=== PATIENT | male | born 1965 | race Caucasian/White ===

== ENCOUNTER 2019-10-02 08:28 | Inpatient (IN) | payer BC ==
[2019-09-24 17:03] LABS: BASOPHILS % (AUTO) 0.4 % (0-1); EOSINOPHILS # (AUTO) 0.1 X10'3 (0-0.9); EOSINOPHILS % (AUTO) 0.7 % (0-6); LYMPHOCYTES # (AUTO) 1.7 X10'3 (1.1-4.8); LYMPHOCYTES % (AUTO) 21.2 % (21-51); MEAN CORPUSCULAR HEMOGLOBIN 31.1 PG (27.0-31.0); MEAN CORPUSCULAR HGB CONC 34.2 g/dL (33.0-36.5); MEAN PLATELET VOLUME 8.6 FL (7.4-10.4); MONOCYTES # (AUTO) 0.8 X10'3 (0-0.9); MONOCYTES % (AUTO) 10.3 % (2-12); NEUTROPHILS # (AUTO) 5.5 X10'3 (1.8-7.7); NEUTROPHILS % (AUTO) 67.4 % (42-75); PRE OP HEMATOCRIT 48.8 % (42.0-52.0); PRE OP HEMOGLOBIN 16.7 g/dL (14.0-17.9); PRE OP PLATELET COUNT 196 X10'3 (140-440); RED BLOOD COUNT 5.37 X10'6 (4.70-6.10); RED CELL DISTRIBUTION WIDTH 14.4 % (11.5-14.5)
[2019-09-24 17:14] LABS: PRE OP PROTIME 10.1 SECONDS (9.0-12.0)
[2019-09-24 17:16] LABS: ALBUMIN 4.1 G/DL (3.4-5.0); ALBUMIN/GLOBULIN RATIO 1.2 (1.1-1.5); ALKALINE PHOSPHATASE 64 IU/L (46-116); BLOOD UREA NITROGEN 17 MG/DL (7-18); CALCIUM 9.1 MG/DL (8.5-10.1); CHLORIDE 107 MMOL/L (99-107); CREATININE 1.21 MG/DL (0.60-1.10); PRE OP ALT 43 U/L (30-65); PRE OP ANION GAP 6 (8-16); PRE OP AST 23 U/L (10-37); PRE OP BILIRUB, TOTAL 0.6 MG/DL (0.0-1.0); PRE OP GLUCOSE 91 MG/DL (70-104); PRE OP POTASSIUM 3.9 MMOL/L (3.4-5.1); PRE OP SODIUM 141 MMOL/L (135-145); TOTAL CARBON DIOXIDE 28.2 MMOL/L (24-32); TOTAL PROTEIN 7.5 G/DL (6.4-8.2); eGFR 63 ML/MIN
[~2019-10-02] VITALS: Ht 180.3 cm; Wt 117.3 kg
[2019-10-02] VITALS (20 sets, daily range): BP systolic 100–143; BP diastolic 50–105
[~2019-10-02 08:28] MED LIST: HYDR-3972 PO; LOSA50TA64 PO; clindamycin-Cleocin 900mg/D5W 50 ML IV ONE; famotidine 20mg tablet PO ONE
[2019-10-02] MEDS: ringers solution, lacted 1,000 ML IV SCH ×2 (08:58→19:03)
[2019-10-02] MEDS ORDERED: MIDAZolam 5mg/5ml vial ONE (09:04)
[2019-10-02] MEDS ORDERED: fentaNYL /PF 50mcg/ml 5ml ampule ONE ×2 (09:04→12:00)
[2019-10-02] MEDS ORDERED: morphine 4 MG/ML inj SYRINge IV PRN (09:15)
[2019-10-02] MEDS ORDERED: hydrALAZINE 20mg/ml inj. IV PRN (09:15)
[2019-10-02] MEDS ORDERED: ringers solution, lacted 1,000 ML IV SCH (09:15)
[2019-10-02] MEDS ORDERED: labetalol 20mg/4ml (5mg/ml) syringe IV PRN (09:15)
[2019-10-02] MEDS ORDERED: morphine 2 MG/ML inj. syringe IV PRN (09:15)
[2019-10-02] MEDS ORDERED: fentaNYL/PF 50MCG/1 ML 2ML syringe IV PRN (09:15)
[2019-10-02] MEDS ORDERED: ondansetron/PF 4mg/2ml inj IV PRN ×2 (09:15→13:45)
[2019-10-02] MEDS ORDERED: glycopyrrolate 0.2mg/ml inj ONE (09:25)
[2019-10-02] MEDS ORDERED: sevoflurane 250ml liquid IH ONE (09:25)
[2019-10-02] MEDS ORDERED: dexamethasone sod phosphate 10mg/ml inj ONE (09:25)
[2019-10-02] MEDS ORDERED: neostigmine methylsulfate 1 MG/ML 10ml vial ONE (09:25)
[2019-10-02] MEDS ORDERED: tranexamic acid 100mg/ml inj. ONE (09:43)
[2019-10-02] MEDS ORDERED: propofol inj 20 ML IV ONE ×3 (09:50)
[2019-10-02] MEDS ORDERED: rocuronium 10mg/ml inj IV ONE ×2 (09:50→10:31)
[2019-10-02] MEDS ORDERED: LIDOcaine 2% (20mg/ml) 5ml vial ONE ×2 (09:50)
[2019-10-02] MEDS ORDERED: ondansetron/PF 4mg/2ml inj ONE (09:50)
[2019-10-02] MEDS ORDERED: BUPIVACAINE liposomal/PF 13.3 MG/ML vial IM ONE (11:03)
[2019-10-02] MEDS ORDERED: bacitracin 15gm ointment TP ONE (13:10)
--- NOTE | 2019-10-02 13:44 | NUR ---
Received from OR via ortho bed with anny, accompanied by Anesthesiologist Marcus and report given by Anesthesiolgist. Pt responsive to questions not yet oriented, no pain, VS stable with sats 98% and mask to 10L. Hemovac present but not to suction, minimal sanguinous drainage. Neuro checks intact. SCDs on.
--- NOTE | 2019-10-02 13:45 | NUR ---
Surgeon at bedside, full neuro and motor checks completed, education provided on remaining flat for two days. Sign placed on bed for all staff to remain aware of strict orders for remaining flat for 48 hours.
[2019-10-02] MEDS: fentaNYL/PF 50MCG/1 ML 2ML syringe IV PRN ×2 (14:32→14:57)
--- NOTE | 2019-10-02 14:33 | NUR ---
Jin cath draining yellow clear urine.
--- NOTE | 2019-10-02 15:24 | NUR ---
Report called to receiving nurse Umm BRYANT. Transferred via ortho bed. Belongings sent with patient. Special Issues communicated to receiving nurse including all specific orders about staying flat and no dressing changes or suction to hemovac etc. made aware of transfer by phone. All post op VS stable. Pt tolerating ice chips.
--- NOTE | 2019-10-02 15:27 | NUR ---
Patient in room ORTHO 4015. I have received report from Laura BRYANT and had the opportunity to ask questions and assume patient care.
--- NOTE | 2019-10-02 16:20 | NUR ---
Assessed patients grasp as well as dorsiflexion and plantar flexion bilaterally. Patient unable to stand to do a full muscular assessment due to order parameters. Addendum: 10/02/19 at 1627 by Umm Ly RN Amended: Links added.
[2019-10-02] MEDS: CLINDAMYCIN/D5W 900mg/50ml 50 ML IV SCH ×2 (16:33→23:49)
[2019-10-02] MEDS: potassium CL 20mEq in D5-1/2NS 1,000 ML IV SCH (17:53)
--- NOTE | 2019-10-02 18:24 | NUR ---
Problems reprioritized. Patient report given, questions answered & plan of care reviewed with Deborah BRYANT.
[2019-10-02] MEDS ORDERED: HYDROcodone/acetaminophen 10/325mg tab PO PRN ×2 (18:25→19:49)
--- NOTE | 2019-10-02 18:27 | NUR ---
Patient in room ORTHO 4015. I have received report from UmmRN and ANNETTE Lozano and had the opportunity to ask questions and assume patient care.
[2019-10-02] MEDS: docusate sod 100mg capsule PO SCH (19:17)
[2019-10-02] MEDS: HYDROcodone/acetaminophen 10/325mg tab PO PRN (19:54)
[2019-10-02] MEDS: HYDROmorphone inj. 0.5 MG/0.5 ML DISP.SYRIN IV PRN (21:16)
[2019-10-03 00:08] VITALS: BP 131/79
[2019-10-03 02:00] VITALS: BP 140/78
[2019-10-03] MEDS: HYDROmorphone inj. 0.5 MG/0.5 ML DISP.SYRIN IV PRN ×4 (04:04→19:18)
[2019-10-03 04:08] VITALS: BP 128/72
[2019-10-03] MEDS: potassium CL 20mEq in D5-1/2NS 1,000 ML IV SCH ×2 (04:28→16:43)
[2019-10-03] MEDS ORDERED: magnesium hydroxide 30ml (MOM) UD suspension PO PRN (05:00)
[2019-10-03 06:00] VITALS: BP 136/81
--- NOTE | 2019-10-03 06:31 | NUR ---
Problems reprioritized. Patient report given, questions answered & plan of care reviewed with ANNETTE Coronado.
[2019-10-03] MEDS: docusate sod 100mg capsule PO SCH (07:41)
[2019-10-03] MEDS: CLINDAMYCIN/D5W 900mg/50ml 50 ML IV SCH ×2 (07:41→16:45)
[2019-10-03] MEDS: JUVEN Smoothie Arginine/Glut./Ca2+Bmb (Juven 19.3pkt) 240ml cup PO SCH ×4 (08:47→14:37)
--- NOTE | 2019-10-03 10:09 | NUR ---
Hemovac bhargavected, MD Gee has been called three times. Have not been able to reach him or leave a message due to voicemail being full. Called office, he is not in. Will attempt to call again.
--- NOTE | 2019-10-03 10:20 | NUR ---
Spoke with Dr. Gee, he said to "just reconnect the hemovac".
[2019-10-03 12:02] VITALS: BP 131/84
[2019-10-03] MEDS: HYDROcodone/acetaminophen 10/325mg tab PO PRN ×2 (17:46→22:38)
[2019-10-03 18:00] VITALS: BP 141/82
--- NOTE | 2019-10-03 18:00 | NUR ---
Patient in room ORTHO 4015. I have received report from ANNETTE Coronado and had the opportunity to ask questions and assume patient care.
--- NOTE | 2019-10-03 18:18 | NUR ---
Problems reprioritized. Patient report given, questions answered & plan of care reviewed with Deborah BRYANT.
[2019-10-04] MEDS: HYDROmorphone inj. 0.5 MG/0.5 ML DISP.SYRIN IV PRN ×2 (01:05→09:23)
[2019-10-04] MEDS: potassium CL 20mEq in D5-1/2NS 1,000 ML IV SCH ×2 (04:35→15:42)
[2019-10-04] MEDS: HYDROcodone/acetaminophen 10/325mg tab PO PRN ×2 (05:18→13:26)
[2019-10-04 06:00] VITALS: BP 111/72
--- NOTE | 2019-10-04 06:28 | NUR ---
Patient in room ORTHO 4015. I have received report from ANNETTE Coronado and had the opportunity to ask questions and assume patient care.
--- NOTE | 2019-10-04 07:04 | NUR ---
Per Ayaz Bartlett/Mahsa lang when patient is walking
[2019-10-04] MEDS: docusate sod 100mg capsule PO SCH (07:44)
[2019-10-04 10:00] VITALS: BP 116/70
--- NOTE | 2019-10-04 12:03 | NUR ---
Patient elevated to 30 degrees. tolerating well so far.
[2019-10-04] MEDS: JUVEN Smoothie Arginine/Glut./Ca2+Bmb (Juven 19.3pkt) 240ml cup PO SCH (12:35)
[2019-10-04] MEDS ORDERED: WALKERFR (13:26)
--- NOTE | 2019-10-04 17:52 | NUR ---
Patient successfully worked with physical therapy with the LSO back brace. Jin cath was removed and patient voided. PIV cannula intact. All belongings gathered and sent home with patient. Patient has a walker and pain medications at home.
== END 2019-10-04 17:35 | disposition home or self-care (01) | DRG 519 ==
LOC: PAS 08:28 → ORTHO 4S 13:42
PROVIDERS: ADMIT Orthopaedic Surgery; ATTEND Orthopaedic Surgery
PROC: 0SB20ZZ Excision of Lumbar Vertebral Disc, Open Approach (ICD-10-PCS; principal; 2019-10-02 09:25)
DX: M54.16 Radiculopathy, lumbar region (principal); G97.41 Accidental puncture or laceration of dura during a procedure; I10 Essential (primary) hypertension; E66.9 Obesity, unspecified; M47.9 Spondylosis, unspecified; M51.26 Other intervertebral disc displacement, lumbar region; M48.061 Spinal stenosis, lumbar region without neurogenic claudication; Y83.8 Other surgical procedures as the cause of abnormal reaction of the patient, or of later complication, without mention of misadventure at the time of the procedure; Z68.36 Body mass index [BMI] 36.0-36.9, adult; Z88.0 Allergy status to penicillin; Y92.234 Operating room of hospital as the place of occurrence of the external cause
CPT/HCPCS: Z7506; Z7508; 36415; 72100; 76000; 80053; 82948; 85025; 85610; 85730; 93005; 97530; 97535; A4215; A4618; A6253; A6258; A6449; A7000; C1758; C1781; C9250; C9290; G0378; J1100; J1170; J2001; J2250; J2270; J2405; J2704; J2710; J3010; J3480; J3490; J7050; J7120